=== PATIENT | male | born 1965 ===

== ENCOUNTER 2025-08-31 09:58 | Outpatient (CLI) | payer OTHER, SELFPAY ==
[2025-08-31 18:49] LABS: PSA, Screening 3.4 ng/mL (<=4.5)
== END 2025-08-31 09:59 | disposition home or self-care (01) ==
LOC: LBO 09:58
PROVIDERS: PCP Physician Assistant; Visit Provider Nurse Practitioner Gerontology
DX: R97.20 Elevated prostate specific antigen [PSA] (principal)
CPT/HCPCS: 36415; 84153